=== PATIENT | female | born 1980 | race Caucasian/White ===

== ENCOUNTER 2017-04-23 17:17 | Emergency (ER) | payer OTHER ==
[~2017-04-23] VITALS: Ht 162.6 cm; Wt 63.5 kg
[~2017-04-23 17:17] MED LIST: INTESTINEX1 CAP PO; PROTONIX40 MG PO
== END 2017-04-23 20:29 | disposition home or self-care (01) ==
LOC: ER 17:17
DX: J11.1 Influenza due to unidentified influenza virus with other respiratory manifestations (principal); B34.9 Viral infection, unspecified